=== PATIENT | female | born 1995 | race Caucasian/White ===

== ENCOUNTER 2022-03-15 15:00 | Emergency (ER) | payer OTHER, SELFPAY ==
[2022-03-15 15:33] VITALS: BP 124/88; PULSE 116; RESP 20; TEMP 36.8; O2SAT 100
[2022-03-15 15:34] VITALS: BP 124/88; PULSE 116; RESP 20; TEMP 36.8; O2SAT 100
--- NOTE | 2022-03-15 15:59 | ED.URI ---
HPI - URI/Sore Throat General Chief Complaint: Upper Respiratory Infection Stated Complaint: congestion,cough Time Seen by Provider: 03/15/22 15:59 Source: patient Mode of arrival: ambulatory Limitations: no limitations History of Present Illness HPI Narrative: 26-year-old female presents with complaint of nasal congestion, sore throat, cough, body aches, chills, fatigue for 3 days. Denies chest pain or shortness breath. No nausea vomiting diarrhea. Was exposed to flu by her cousins. All systems reviewed and negative except as noted above. Related Data Home Medications Medication Instructions Recorded Confirmed albuterol sulfate 90 mcg/actuation 2 inh inhalation PRN PRN Shortness 03/15/22 03/15/22 aerosol inhaler Of Breath Or Wheezing sertraline 50 mg tablet 50 mg PO DAILY 03/15/22 03/15/22 Allergies Allergy/AdvReac Type Severity Reaction Status Date / Time codeine Allergy Intermediate Nausea and Verified 03/15/22 15:34 Vomiting ERYTHROMYCIN ETHYLSUCCINATE Allergy Intermediate Rash Uncoded 03/15/22 15:34 SULFISOXAZOLE ACETYL Allergy Intermediate Rash Uncoded 03/15/22 15:34 Review of Systems Review of Systems: CONSTITUTIONAL: Denies fever . Reports chills, fatigue, sweats. EYES: Denies visual changes, redness, or discharge. ENT: reports rhinorrhea, congestion, sore throat. Denies otalgia. CARDIOVASCULAR: Denies chest pain, palpitations, or edema. RESPIRATORY: report cough. denies dyspnea. GASTROINTESTINAL: Denies abdominal pain, nausea, vomiting, or diarrhea. GENITOURINARY: Denies dysuria or hematuria. SKIN: Denies rash or itching. MUSCULOSKELETAL: Denies back pain, joint pain, or myalgia. NEUROLOGIC: Denies headache, numbness, or weakness. PSYCHIATRIC: Denies anxiety or depression. All other systems reviewed are negative, except as documented in HPI. PMFSH Comments At time of signature, agree with nursing past medical, surgical, social and family history. There is no relevant family history pertinent to the presenting complaint. Exam Narrative: GENERAL: This is a well-nourished, well-developed patient . Patient ill-appearing but no distress. HEAD: normocephalic, atraumatic. EYES: PERRL. Sclera clear/white. Vision is grossly intact. EARS: External ears normal, auditory canals clear and without drainage, TMs normal without perforation. Hearing grossly intact. NOSE: External nose normal with clear nasal drainage. THROAT: Mucous membranes moist, Mild erythema to posterior pharynx. NECK: Neck supple, non-tender without lymphadenopathy, masses or thyromegaly. CARDIOVASCULAR: Regular rate and rhythm without murmurs, gallops, or rubs. RESPIRATORY: Clear to auscultation. Breath sounds equal bilaterally. No wheezes, rales, or rhonchi. SKIN: warm, Dry, intact with no suspicious lesions or rash, good texture and turgor. NEURO: awake, alert, and oriented to person, place and time. There were no obvious focal neurologic abnormalities. EXTREMITIES: No joint tenderness, effusion, or edema noted. Course Course Level of Care: Express Care Visit Vital Signs Vital signs: Vital Signs Temperature 36.8 C 03/15/22 15:33 Pulse Rate 116 H 03/15/22 15:33 Respiratory Rate 20 03/15/22 15:33 Blood Pressure 124/88 03/15/22 15:33 Pulse Oximetry 100 03/15/22 15:33 Oxygen Delivery Room Air 03/15/22 15:33 Temperature 36.8 C 03/15/22 15:34 Pulse Rate 116 H 03/15/22 15:34 Respiratory Rate 20 03/15/22 15:34 Blood Pressure 124/88 03/15/22 15:34 Pulse Oximetry 100 03/15/22 15:34 Oxygen Delivery Room Air 03/15/22 15:34 Reviewed MDM - URI/Sore Throat MDM Narrative Medical decision making narrative: Patient is aware of diagnosis, understands and agrees to treatment plan. Anticipatory guidance given. Patient agrees to follow-up as directed and is aware of reasons to seek care at the emergency department. Portions of this record may have been created with voice recognition s
== END 2022-03-15 16:24 | disposition home or self-care (01) ==
PROVIDERS: Emergency Provider Nurse Practitioner Family
DX: J10.1 Influenza due to other identified influenza virus with other respiratory manifestations (principal); Z20.822 Contact with and (suspected) exposure to COVID-19
CPT/HCPCS: 87426; 87804; 99213; C9803; G0463

== ENCOUNTER 2022-03-23 17:03 | Emergency (ER) | payer OTHER, SELFPAY ==
[2022-03-23] VITALS (10 sets, daily range): BP systolic 103–137; BP diastolic 55–96; PULSE 67–96; RESP 16–18; TEMP 36.7–36.8; O2SAT 96–100
--- NOTE | 2022-03-23 20:46 | ED.HA ---
HPI - Headache General Chief Complaint: Headache Stated Complaint: migraine/nausea Time Seen by Provider: 03/23/22 20:07 History of Present Illness HPI Narrative: Patient is a 26-year-old female with a history of migraines presenting with a migraine. Patient states that she was diagnosed with influenza approximately a week ago. She has been improving but she continues to have a lot of sinus pressure and nasal congestion. She woke up this morning with a migraine and took ubrelvy without relief. She took another dose and unfortunately her migraine continued so she came in for evaluation. Patient states that this feels like her typical migraine just more severe. She reports photophobia and phonophobia. Also reports nausea but no vomiting. Denies fevers, numbness or weakness, chest pain, shortness of breath, abdominal pain, diarrhea, leg swelling. Related Data Home Medications Medication Instructions Recorded Confirmed albuterol sulfate 90 mcg/actuation 2 inh inhalation PRN PRN Shortness 03/15/22 03/15/22 aerosol inhaler Of Breath Or Wheezing sertraline 50 mg tablet 50 mg PO DAILY 03/15/22 03/15/22 Allergies Allergy/AdvReac Type Severity Reaction Status Date / Time codeine Allergy Intermediate Nausea and Verified 03/23/22 20:29 Vomiting ERYTHROMYCIN ETHYLSUCCINATE Allergy Intermediate Rash Uncoded 03/23/22 20:29 SULFISOXAZOLE ACETYL Allergy Intermediate Rash Uncoded 03/23/22 20:29 Review of Systems Review of Systems: All systems reviewed & are unremarkable except as noted in HPI and below Exam Narrative: GENERAL: Well-appearing, well-nourished, and in no acute distress. HEAD: Normocephalic, atraumatic. EYES: PERRLA and EOMI. ENT: Nares clear, no rhinorrhea or epistaxis. Mucous membranes moist. NECK: Supple. CHEST: Clear to auscultation. No respiratory distress. HEART: Regular rate and rhythm. No murmur heard. Normal peripheral pulses. ABDOMEN: Soft, nontender, nondistended, normal active bowel sounds. EXTREMITIES: Normal range of motion. No edema. SKIN: Warm, dry, no rash. NEURO: No focal deficits. Alert and oriented x3. PSYCH: Normal mood and affect. Course Vital Signs Vital signs: Vital Signs Temperature 98.1 F 03/23/22 17:40 Pulse Rate 96 03/23/22 17:40 Respiratory Rate 16 03/23/22 17:40 Blood Pressure 137/96 H 03/23/22 17:40 Pulse Oximetry 100 03/23/22 17:40 Oxygen Delivery Room Air 03/23/22 17:40 Temperature 98.2 F 03/23/22 22:51 Pulse Rate 75 03/23/22 22:51 Respiratory Rate 18 03/23/22 22:51 Blood Pressure 126/79 03/23/22 22:51 Pulse Oximetry 98 03/23/22 22:51 Oxygen Delivery Room Air 03/23/22 17:40 MDM - Headache MDM Narrative Medical decision making narrative: Patient is a 26-year-old female presenting with a migraine. Vitals within normal limits. Patient is uncomfortable but nontoxic and in no acute distress. Exam is unremarkable. Neurologically intact. Patient was given a migraine cocktail with improvement in her symptoms. Given a dose of Decadron to prevent migraine recurrence. Advised that she follow-up with her migraine specialist as well as her PCP. Appropriate return precautions given. Patient voiced understanding and is agreeable with plan. Discharged in stable condition. Critical Care Time Critical Care Time Critical Care Time: No Discharge Plan Discharge Clinical Impression: Migraine Patient Disposition: Home, Self-Care Condition: Stable Instructions: Antibiotic Form, Migraine Headache (ED) Additional Instructions: Please follow-up with your primary care provider as well as your migraine doctor. If your symptoms suddenly worsen, you develop numbness or weakness, or other concerning symptoms arise, please return to the ER. Prescriptions: No Action albuterol sulfate 90 mcg/actuation HFA aerosol inhaler 2 inh INHALATION PRN PRN (Reason: Shortness Of Breath Or Wheezing) sertraline 50 mg tablet 5
[2022-03-23] MEDS: SODIUM CHLORIDE 0.9% IV 1,000 ML 999 ML IV CONT (21:03)
[2022-03-23] MEDS: KETOROLAC 15 MG/ML VIAL (*BKC) IV PUSH (21:04)
[2022-03-23] MEDS: diphenhydrAMINE HCl INJ 50 MG/ML VIAL IV PUSH (21:05)
[2022-03-23] MEDS: PROCHLORPERAZINE EDISYLATE 10 MG/2 ML VIAL IV PUSH (21:10)
== END 2022-03-23 22:52 | disposition home or self-care (01) ==
PROVIDERS: Emergency Provider Emergency Medicine; PCP Nurse Practitioner Family
DX: G43.909 Migraine, unspecified, not intractable, without status migrainosus (principal)
CPT/HCPCS: 96361; 96374; 96375; 99284; J0780; J1100; J1200; J1885; J7030

== ENCOUNTER 2022-08-19 21:54 | Inpatient (IN) | payer OTHER, SELFPAY ==
--- NOTE | ~2022-08-19 | US_ITS ---
EXAMINATION: US renal BI DATE: 08/20/2022 15:35 INDICATION: Henoch Schonlein purpura TECHNIQUE: Multiple ultrasound grayscale images of the kidneys were obtained. COMPARISON: None. FINDINGS: The right kidney measures 9.8 x 5.1 x 4.2 cm. The left kidney measures 10.1 x 5.1 x 5.6 cm. The kidne ys demonstrate normal echogenicity. There is no hydronephrosis in either kidney. No stones identifie d. The bladder is normal. IMPRESSION: 1. Normal kidneys without hydronephrosis. Reviewed, dictated and finalized at location A.
[2022-08-19 21:58] VITALS: BP 121/85; PULSE 121; RESP 20; TEMP 37.4; O2SAT 100
[2022-08-19 22:34] LABS: Basophils Absolute Auto 0.1 K/mm3 (0.0-0.1); Basophils Percent Auto 0.6 % (0.2-1.2); Eosinophils Absolute Auto 0.1 K/mm3 (0-0.3); Eosinophils Percent Auto 0.7 % (0-4.4); Hemoglobin 15.2 g/dL (12.0-15.0); Immature Granulocyte Absolute 0.04 K/mm3 (0.00-0.031); Immature Granulocyte Percent A 0.3 % (0-0.5); Lymphocytes Absolute Auto 1.54 K/mm3 (0.9-3.2); Lymphocytes Percent Auto 12.7 % (18.3-44.2); Mean Corpuscular HGB Conc 34.5 g/dl (32-36); Mean Corpuscular Hemoglobin 28.8 pg (26-34); Mean Corpuscular Volume 83.3 fl (80-100); Mean Platelet Volume 9.2 fl (7.4-10.4); Monocytes Absolute Auto 0.7 K/mm3 (0.1-0.6); Monocytes Percent Auto 6.1 % (2.6-8.5); Neutrophils Absolute Auto 9.7 K/mm3 (1.3-6.7); Neutrophils Percent Auto 79.6 % (45.5-73.1); Platelet Count Result 385 k/mm3 (150-375); Red Blood Count 5.28 M/mm3 (4.2-5.4); Red Cell Distribution Width 12.7 % (11.5-14.5); White Blood Count 12.1 K/mm3 (4.5-10.0)
[2022-08-19 22:49] LABS: Alanine Aminotransferase 27 U/L (6-35); Albumin Level 4.8 g/dL (3.5-5.1); Alkaline Phosphatase 108 U/L (38-126); Anion Gap 12 mmol/L (8-16); Aspartate Amino Transferase 30 U/L (14-36); Bilirubin,Total 0.8 mg/dL (0.2-1.3); Blood Urea Nitrogen 23 mg/dL (7-17); CRP 3.1 mg/dL (<1.0); Calcium 9.6 mg/dL (8.4-10.2); Carbon Dioxide 26 mmol/L (22-30); Chloride 97 mmol/L (98-107); Creatine Kinase 185 U/L (30-135); Estimated CRCL calculation 96 ml/min; Estimated Glomerular Filt Rate > 60; Glucose 104 mg/dL (65-110); Potassium 3.7 mmol/L (3.4-5.0); Sodium 135 mmol/L (137-145)
[2022-08-19 23:21] LABS: Appearance Urine Clear (Clear); Bilirubin Urine Negative (Negative); Blood Urine Negative (Negative); Color Urine Yellow (Yellow); Glucose Urine UA Negative (Negative); Ketones Urine 1+ mg/dL (Negative); Leukocyte Esterase Ur Negative LEU/UL (Negative); Nitrate Urine Negative (Negative); Protein Urine Negative (Negative); Specific Grav Ur 1.024 (1.001-1.035); Urobilinogen Urine 0.2 mg/dL (<2.0); pH Urine 5.5 (5.0-9.0)
[2022-08-19 23:40] LABS: Add Urine Microscopic? NO
[2022-08-19 23:48] VITALS: BP 139/89; PULSE 106; RESP 16; O2SAT 100
[2022-08-20] VITALS (15 sets, daily range): BP systolic 110–139; BP diastolic 66–93; PULSE 93–119; RESP 14–21; TEMP 36.1–36.8; O2SAT 95–100; BMI 39.2
[2022-08-20] MEDS: SODIUM CHLORIDE 0.9% IV 1,000 ML 999 ML IV CONT ×2 (00:21→07:56)
--- NOTE | 2022-08-20 01:42 | ED.GENADULT ---
HPI - General Adult General Chief complaint: Skin/Abscess/Foreign Body <Demetrio Lin PA-C - Last Filed: 08/20/22 04:42> Stated complaint: rash on legs, muscle weakness <Demetrio Lin PA-C - Last Filed: 08/20/22 04:42> Time Seen by Provider: 08/19/22 23:52 <Demetrio Lin PA-C - Last Filed: 08/20/22 04:42> Source: patient <ADRIANA Stark Last Filed: 08/20/22 04:42> Mode of arrival: ambulatory <ADRIANA Stark Last Filed: 08/20/22 04:42> Limitations: no limitations <Demetrio Lin PA-C - Last Filed: 08/20/22 04:42> History of Present Illness HPI narrative: This is a 26-year-old female with no pertinent PMH presents to the ED with chief complaint of bilateral lower extremity rash and pain x2 days. Patient states that it started in the lower legs and has been spreading superiorly since yesterday. Patient was seen by urgent care today and given antibiotics for potential bacterial infection. Patient states she is here tonight because the rash is significantly worse than earlier and is having weakness in the legs as well. Denies any new skin products. Denies any known bug bites. States she does live near the [facility]. Denies any known injuries. No new drugs other than her antibiotic prescription given tonight. Denies fevers, chills, chest pain, shortness of breath, cough, abdominal pain, nausea, vomiting, diarrhea. Denies urinary symptoms. Denies vaginal symptoms. States currently on period. Denies any concern for STD. <Demetrio Lin PA-C - Last Filed: 08/20/22 04:42> Related Data Home medications: Home Medications Medication Instructions Recorded Confirmed albuterol sulfate 90 mcg/actuation 2 inh inhalation PRN PRN Shortness 03/15/22 08/20/22 aerosol inhaler Of Breath Or Wheezing <ADRIANA Stark Last Filed: 08/20/22 04:42> Allergies/adverse reactions: Allergies Allergy/AdvReac Type Severity Reaction Status Date / Time erythromycin base Allergy Intermediate Rash Verified 08/20/22 06:47 sulfisoxazole Allergy Intermediate Rash Verified 08/20/22 06:47 codeine AdvReac Intermediate Nausea and Verified 08/20/22 06:47 Vomiting <Demetrio Lin PA-C - Last Filed: 08/20/22 04:42> Review of Systems Review of Systems: CONSTITUTIONAL: Denies fever, chills, or sweats. EYES: Denies visual changes, redness, or discharge. ENT: Denies rhinorrhea, congestion, sore throat, or otalgia. CARDIOVASCULAR: Denies chest pain, palpitations, or edema. RESPIRATORY: Denies cough or dyspnea. GASTROINTESTINAL: Denies abdominal pain, nausea, vomiting, or diarrhea. GENITOURINARY: Denies dysuria or hematuria. SKIN: See HPI MUSCULOSKELETAL: See HPI NEUROLOGIC: Denies headache, numbness, dizziness, or weakness. PSYCHIATRIC: Denies anxiety or depression. <Demetrio Lin PA-C - Last Filed: 08/20/22 04:42> [facility] Social History Social History: Social History Smoking status: Never smoker Alcohol intake: current Drinks per week: 1 Substance use: current Substance use type: does not use Lack of Transportation: No Lack of Food: Never True Current Housing: I Do Not Have Housing Concerned About Future Housing: No Difficulty Paying Gas/Electric Bills: No Difficulty Paying for Meds: No Currently Unemployed: No Education: High School Diploma/GED Difficulty w/ Childcare or Family Care: No Spiritual care concerns: No <Demetrio Lin PA-C - Last Filed: 08/20/22 04:42> Exam Narrative: GENERAL: Well-appearing, well-nourished, and in no acute distress. HEAD: Normocephalic, atraumatic. EYES: PERRLA and EOMI. ENT: Nares clear, no rhinorrhea or epistaxis. Mucous membranes moist. Oropharynx without tonsillar hypertrophy exudate or other lesions. NECK: Supple. No adenopathy or masses. CHEST: No respiratory distress. Clear to auscultation. No wheezes rales or rhonchi HEART: Regular rate a
[2022-08-20] MEDS: KETOROLAC 30 MG/ML VIAL (*BKC) IV PUSH (02:38)
[2022-08-20] MEDS: DOXYCYCLINE 100 MG/NS 100 ML 100 MG/100 ML BAG IVPB ×2 (04:35→17:19)
[2022-08-20] MEDS: ceFAZolin 1 GM/NS 50 ML 1 GM/50 ML BAG IVPB (06:59)
--- NOTE | 2022-08-20 07:46 | ADMGEN ---
This patient, Melinda Zamora, was admitted to 2 Medical Room 242-01. Patient/family oriented to hospital policies and general routines including ID bracelet, bed and alarms, visiting hours, pain management, procedures, bathroom and other care routines, personal items, smoking policy, room service/diet, and visiting hours. Information on how to activate the Rapid Response Team has been discussed. Patient/Family are encouraged to report perceived risks to care and to ask questions if they do not understand what they are told or what they should do.
[2022-08-20] MEDS: SODIUM CHLORIDE 0.9% IV 1,000 ML 100 ML IV CONT ×2 (08:11→17:47)
--- NOTE | 2022-08-20 12:34 | PM.IMHP ---
H&P: HPI History of Present Illness Date/Time: 08/20/22 12:34 Chief Complaint: B/L lower extremities rash Narrative: ED-HPI narrative: ? ? ? This is a 26-year-old female with no pertinent PMH presents to the ED with chief complaint of bilateral lower extremity rash and pain x2 days.? Patient states that it started in the lower legs and has been spreading superiorly since yesterday.? Patient was seen by urgent care today and given antibiotics for potential bacterial infection.? Patient states she is here tonight because the rash is significantly worse than earlier and is having weakness in the legs as well.? Denies any new skin products.? Denies any known bug bites.? States she does live near the [facility].? Denies any known injuries.? No new drugs other than her antibiotic prescription given tonight.? Denies fevers, chills, chest pain, shortness of breath, cough, abdominal pain, nausea, vomiting, diarrhea.? Denies urinary symptoms. Denies vaginal symptoms. States currently on period. Denies any concern for STD. Patient states the rash is getting worse and complains of pain in her joints but denies any abdominal pain nausea or vomiting, I suspect patient has Henoch-Schonlein purpura, will give patient methylprednisone, her urine does not show any protienuria, will do baseline kidney US, will monitor and farther recommendation to follow. Patient admitted as observation status Review of Systems Review of Systems: CONSTITUTIONAL: Denies fever, chills, or sweats. EYES: Denies visual changes, redness, or discharge. ENT: Denies rhinorrhea, congestion, sore throat, or otalgia. CARDIOVASCULAR: Denies chest pain, palpitations, or edema. RESPIRATORY: Denies cough or dyspnea. GASTROINTESTINAL: Denies abdominal pain, nausea, vomiting, or diarrhea. GENITOURINARY: Denies dysuria or hematuria. SKIN: See HPI MUSCULOSKELETAL: See HPI NEUROLOGIC: Denies headache, numbness, dizziness, or weakness. PSYCHIATRIC: Denies anxiety or depression. [facility] Social History Social History Smoking status: Never smoker Alcohol intake: current Drinks per week: 1 Substance use: current Substance use type: does not use Lack of Transportation: No Lack of Food: Never True Current Housing: I Do Not Have Housing Concerned About Future Housing: No Difficulty Paying Gas/Electric Bills: No Difficulty Paying for Meds: No Currently Unemployed: No Education: High School Diploma/GED Difficulty w/ Childcare or Family Care: No Spiritual care concerns: No Meds Home Medications and Allergies Home Medications Medication Instructions Recorded Confirmed Type albuterol sulfate 90 mcg/actuation 2 inh inhalation PRN PRN Shortness 03/15/22 08/20/22 History aerosol inhaler Of Breath Or Wheezing Allergies Allergy/AdvReac Type Severity Reaction Status Date / Time erythromycin base Allergy Intermediate Rash Verified 08/20/22 06:47 sulfisoxazole Allergy Intermediate Rash Verified 08/20/22 06:47 codeine AdvReac Intermediate Nausea and Verified 08/20/22 06:47 Vomiting Vital Signs Vital Signs - 24 hr 08/19/22 21:58 08/19/22 23:48 08/20/22 00:01 Temperature 99.4 F Pulse Rate 121 H 106 H 93 Respiratory Rate 20 16 17 Blood Pressure 121/85 139/89 133/90 Pulse Oximetry 100 100 99 Oxygen Delivery Room Air 08/20/22 00:16 08/20/22 00:31 08/20/22 00:46 Temperature Pulse Rate 101 H 102 H 98 Respiratory Rate 20 15 14 Blood Pressure 128/87 132/91 H 134/87 Pulse Oximetry 99 98 99 Oxygen Delivery 08/20/22 03:31 08/20/22 04:00 08/20/22 04:16 Temperature Pulse Rate 105 H 105 H 119 H Respiratory Rate 19 16 18 Blood Pressure 139/93 H Pulse Oximetry 99 98 99 Oxygen Delivery 08/20/22 04:35 08/20/22 04:45 08/20/22 05:00 Temperature Pulse Rate 100 103 H 101 H Respiratory Rate 17 15 14 Blood Pressure Pulse Oximetry 98 98 98 Oxygen Delivery
[2022-08-20] MEDS: methylPREDNISolone SOD SUCC 125 MG VIAL IV PUSH (13:47)
[2022-08-21] MEDS: SODIUM CHLORIDE 0.9% IV 1,000 ML 100 ML IV CONT (03:47)
[2022-08-21 03:59] VITALS: BP 128/66; PULSE 96; RESP 22; TEMP 36.1; O2SAT 96
[2022-08-21 07:30] LABS: Estimated CRCL calculation 121 ml/min; Estimated Glomerular Filt Rate > 60
[2022-08-21] MEDS: ENOXAPARIN 40 MG/0.4 ML SYRINGE SUB-Q (08:28)
[2022-08-21] MEDS: ACETAMINOPHEN 325 MG TABLET 650 MG PO (09:44)
[2022-08-21] MEDS: methylPREDNISolone SOD SUCC 125 MG VIAL 60 MG IV PUSH (12:34)
--- NOTE | 2022-08-21 13:26 | PM.IMPN ---
Progress Note: A&P Assessment and Plan (1) Rash and nonspecific skin eruption: Code(s): R21 - Rash and other nonspecific skin eruption Status: Acute Assessment and Plan: ED-HPI narrative: ? ? ? This is a 26-year-old female with no pertinent PMH presents to the ED with chief complaint of bilateral lower extremity rash and pain x2 days.? Patient states that it started in the lower legs and has been spreading superiorly since yesterday.? Patient was seen by urgent care today and given antibiotics for potential bacterial infection.? Patient states she is here tonight because the rash is significantly worse than earlier and is having weakness in the legs as well.? Denies any new skin products.? Denies any known bug bites.? States she does live near the [facility].? Denies any known injuries.? No new drugs other than her antibiotic prescription given tonight.? Denies fevers, chills, chest pain, shortness of breath, cough, abdominal pain, nausea, vomiting, diarrhea.? Denies urinary symptoms. Denies vaginal symptoms. States currently on period. Denies any concern for STD. 08/21/2022 interval history: on 08/20 Patient statesd the rash was getting worse and complains of pain in her joints but denied any abdominal pain nausea or vomiting, I suspect patient has Henoch-Schonlein purpura, and gave patient methylprednisone 125mg IV x1, , her urine does not show any protienuria, and kidney US is essentially normal, today patient is joint pain is better and the ratio is improved, will give methylprednisone 60 mg q.day and monitor. (2) Bilateral leg pain: Code(s): M79.604 - Pain in right leg; M79.605 - Pain in left leg Status: Acute Assessment and Plan: Most likely secondary to Henoch-Schonlein purpura, will give the patient steroid and monitor Subjective Date/time seen: 08/21/22 13:26 Interval history: ED-HPI narrative: ? ? ? This is a 26-year-old female with no pertinent PMH presents to the ED with chief complaint of bilateral lower extremity rash and pain x2 days.? Patient states that it started in the lower legs and has been spreading superiorly since yesterday.? Patient was seen by urgent care today and given antibiotics for potential bacterial infection.? Patient states she is here tonight because the rash is significantly worse than earlier and is having weakness in the legs as well.? Denies any new skin products.? Denies any known bug bites.? States she does live near the [place].? Denies any known injuries.? No new drugs other than her antibiotic prescription given tonight.? Denies fevers, chills, chest pain, shortness of breath, cough, abdominal pain, nausea, vomiting, diarrhea.? Denies urinary symptoms. Denies vaginal symptoms. States currently on period. Denies any concern for STD. 08/21/2022 interval history: on 08/20 Patient statesd the rash was getting worse and complains of pain in her joints but denied any abdominal pain nausea or vomiting, I suspect patient has Henoch-Schonlein purpura, and gave patient methylprednisone 125mg IV x1, , her urine does not show any protienuria, and kidney US is essentially normal, today patient is joint pain is better and the ratio is improved, will give methylprednisone 60 mg q.day and monitor. Review of Systems Review of Systems: CONSTITUTIONAL: Denies fever, chills, or sweats. EYES: Denies visual changes, redness, or discharge. ENT: Denies rhinorrhea, congestion, sore throat, or otalgia. CARDIOVASCULAR: Denies chest pain, palpitations, or edema. RESPIRATORY: Denies cough or dyspnea. GASTROINTESTINAL: Denies abdominal pain, nausea, vomiting, or diarrhea. GENITOURINARY: Denies dysuria or hematuria. SKIN: See HPI MUSCULOSKELETAL: See HPI NEUROLOGIC: Denies headache, numbness, dizziness, or weakness. PSYCHIATRIC: Denies anxiety or depression. Exam Narrative: Patient is comfortable, NAD HEENT: eyes are clear and none icteric LUNGS: Normal respiratory effort ABD: Not distended
[2022-08-21 14:25] VITALS: BP 126/71; PULSE 80; RESP 16; TEMP 36.7; O2SAT 100
[2022-08-21 19:47] VITALS: BP 124/68; PULSE 84; RESP 19; TEMP 36.4; O2SAT 97
[2022-08-22 04:12] VITALS: BP 125/72; PULSE 67; RESP 20; TEMP 36.1; O2SAT 98
[2022-08-22 05:34] LABS: Alanine Aminotransferase 22 U/L (6-35); Albumin Level 4.2 g/dL (3.5-5.1); Alkaline Phosphatase 81 U/L (38-126); Anion Gap 5 mmol/L (8-16); Aspartate Amino Transferase 24 U/L (14-36); Bilirubin,Total 0.5 mg/dL (0.2-1.3); Blood Urea Nitrogen 12 mg/dL (7-17); Calcium 8.8 mg/dL (8.4-10.2); Carbon Dioxide 27 mmol/L (22-30); Chloride 107 mmol/L (98-107); Estimated CRCL calculation 107 ml/min; Estimated Glomerular Filt Rate > 60; Glucose 101 mg/dL (65-110); Magnesium 2.3 mg/dL (1.6-2.3); Potassium 3.8 mmol/L (3.4-5.0); Sodium 139 mmol/L (137-145)
[2022-08-22 08:00] VITALS: PULSE 67; RESP 20; O2SAT 98
[2022-08-22] MEDS: methylPREDNISolone SOD SUCC 125 MG VIAL 60 MG IV PUSH (08:29)
[2022-08-22 10:45] LABS: Hematocrit 42.4 % (37.0-47.0); Hemoglobin 13.6 g/dL (12.0-15.0); Mean Corpuscular HGB Conc 32.1 g/dl (32-36); Mean Corpuscular Hemoglobin 28.7 pg (26-34); Mean Corpuscular Volume 89.5 fl (80-100); Mean Platelet Volume 9.8 fl (7.4-10.4); Platelet Count Result 329 k/mm3 (150-375); Red Blood Count 4.74 M/mm3 (4.2-5.4); Red Cell Distribution Width 13.2 % (11.5-14.5); White Blood Count 9.8 K/mm3 (4.5-10.0)
--- NOTE | 2022-08-22 13:51 | PM.IMPN ---
Progress Note: A&P Assessment and Plan (1) Rash and nonspecific skin eruption: Code(s): R21 - Rash and other nonspecific skin eruption Status: Acute Assessment and Plan: ED-HPI narrative: ? ? ? This is a 26-year-old female with no pertinent PMH presents to the ED with chief complaint of bilateral lower extremity rash and pain x2 days.? Patient states that it started in the lower legs and has been spreading superiorly since yesterday.? Patient was seen by urgent care today and given antibiotics for potential bacterial infection.? Patient states she is here tonight because the rash is significantly worse than earlier and is having weakness in the legs as well.? Denies any new skin products.? Denies any known bug bites.? States she does live near the [facility].? Denies any known injuries.? No new drugs other than her antibiotic prescription given tonight.? Denies fevers, chills, chest pain, shortness of breath, cough, abdominal pain, nausea, vomiting, diarrhea.? Denies urinary symptoms. Denies vaginal symptoms. States currently on period. Denies any concern for STD. 08/26/2022 interval history: on 08/20 Patient statesd the rash was getting worse and complains of pain in her joints but denied any abdominal pain nausea or vomiting, I suspect patient has Henoch-Schonlein purpura, and gave patient methylprednisone 125mg IV x1, , her urine does not show any protienuria, and kidney US is essentially normal, we have continued methylprednisone 60mg qdaily, patient symptoms are improving, stats rash and joints pain is better, one bottle on blood culture is growing gram positive cocci cluster, suspect most likely contamination however will follow-up identification and sensitivity and also discussed with ID pharmacist and further recommendation to follow, patient's mother is present in the room (2) Bilateral leg pain: Code(s): M79.604 - Pain in right leg; M79.605 - Pain in left leg Status: Acute Assessment and Plan: Most likely secondary to Henoch-Schonlein purpura, will give the patient steroid and monitor Subjective Date/time seen: 08/22/22 13:51 Interval history: ED-HPI narrative: ? ? ? This is a 26-year-old female with no pertinent PMH presents to the ED with chief complaint of bilateral lower extremity rash and pain x2 days.? Patient states that it started in the lower legs and has been spreading superiorly since yesterday.? Patient was seen by urgent care today and given antibiotics for potential bacterial infection.? Patient states she is here tonight because the rash is significantly worse than earlier and is having weakness in the legs as well.? Denies any new skin products.? Denies any known bug bites.? States she does live near the [facility].? Denies any known injuries.? No new drugs other than her antibiotic prescription given tonight.? Denies fevers, chills, chest pain, shortness of breath, cough, abdominal pain, nausea, vomiting, diarrhea.? Denies urinary symptoms. Denies vaginal symptoms. States currently on period. Denies any concern for STD. 08/26/2022 interval history: on 08/20 Patient statesd the rash was getting worse and complains of pain in her joints but denied any abdominal pain nausea or vomiting, I suspect patient has Henoch-Schonlein purpura, and gave patient methylprednisone 125mg IV x1, , her urine does not show any protienuria, and kidney US is essentially normal, we have continued methylprednisone 60mg qdaily, patient symptoms are improving, stats rash and joints pain is better, one bottle on blood culture is growing gram positive cocci cluster, suspect most likely contamination however will follow-up identification and sensitivity and also discussed with ID pharmacist and further recommendation to follow, patient's mother is present in the room Exam Narrative: Patient is comfortable, NAD HEENT: eyes are clear and none icteric LUNGS: Normal respiratory effort ABD: Not distended Lower extremities: no edema
[2022-08-22 14:00] VITALS: BP 124/76; PULSE 80; RESP 18; TEMP 36.6; O2SAT 98
[2022-08-22 20:00] VITALS: PULSE 100; RESP 20; O2SAT 84
[2022-08-22 20:39] VITALS: BP 127/78; PULSE 100; RESP 20; TEMP 36.1; O2SAT 84
[2022-08-23 03:54] VITALS: BP 123/73; PULSE 87; RESP 20; TEMP 36.4; O2SAT 100
[2022-08-23 05:37] LABS: Hematocrit 41.2 % (37.0-47.0); Hemoglobin 13.6 g/dL (12.0-15.0); Mean Corpuscular Hemoglobin 28.5 pg (26-34); Mean Corpuscular Volume 86.2 fl (80-100); Mean Platelet Volume 9.5 fl (7.4-10.4); Platelet Count Result 327 k/mm3 (150-375); Red Blood Count 4.78 M/mm3 (4.2-5.4)
[2022-08-23 05:47] LABS: Alanine Aminotransferase 19 U/L (6-35); Albumin Level 3.9 g/dL (3.5-5.1); Alkaline Phosphatase 81 U/L (38-126); Anion Gap 7 mmol/L (8-16); Aspartate Amino Transferase 19 U/L (14-36); Bilirubin,Total 0.4 mg/dL (0.2-1.3); Blood Urea Nitrogen 18 mg/dL (7-17); Calcium 8.5 mg/dL (8.4-10.2); Carbon Dioxide 27 mmol/L (22-30); Chloride 107 mmol/L (98-107); Estimated CRCL calculation 96 ml/min; Estimated Glomerular Filt Rate > 60; Glucose 91 mg/dL (65-110); Magnesium 2.2 mg/dL (1.6-2.3); Potassium 3.7 mmol/L (3.4-5.0); Sodium 141 mmol/L (137-145)
[2022-08-23] MEDS: ENOXAPARIN 40 MG/0.4 ML SYRINGE SUB-Q (09:31)
--- NOTE | 2022-08-23 09:54 | PM.DS ---
DS: Admitting Diagnosis Discharge Date 08/23/2022 Admitting Diagnosis Rash DS: Discharge Diagnosis Discharge Diagnosis (1) Rash and nonspecific skin eruption: Code(s): R21 - Rash and other nonspecific skin eruption Status: Acute Assessment and Plan: ED-HPI narrative: ? ? ? This is a 26-year-old female with no pertinent PMH presents to the ED with chief complaint of bilateral lower extremity rash and pain x2 days.? Patient states that it started in the lower legs and has been spreading superiorly since yesterday.? Patient was seen by urgent care today and given antibiotics for potential bacterial infection.? Patient states she is here tonight because the rash is significantly worse than earlier and is having weakness in the legs as well.? Denies any new skin products.? Denies any known bug bites.? States she does live near the [facility].? Denies any known injuries.? No new drugs other than her antibiotic prescription given tonight.? Denies fevers, chills, chest pain, shortness of breath, cough, abdominal pain, nausea, vomiting, diarrhea.? Denies urinary symptoms. Denies vaginal symptoms. States currently on period. Denies any concern for STD. 08/26/2022 interval history: on 08/20 Patient statesd the rash was getting worse and complains of pain in her joints but denied any abdominal pain nausea or vomiting, I suspect patient has Henoch-Schonlein purpura, and gave patient methylprednisone 125mg IV x1, , her urine does not show any protienuria, and kidney US is essentially normal, we have continued methylprednisone 60mg qdaily, patient symptoms are improving, stats rash and joints pain is better, one bottle on blood culture is growing gram positive cocci cluster, suspect most likely contamination however will follow-up identification and sensitivity and also discussed with ID pharmacist and further recommendation to follow, patient's mother is present in the room (2) Bilateral leg pain: Code(s): M79.604 - Pain in right leg; M79.605 - Pain in left leg Status: Acute Assessment and Plan: Most likely secondary to Henoch-Schonlein purpura, will give the patient steroid and monitor DS: Summary Hospital Course Reason for hospitalization: ED-HPI narrative: ? ? ? This is a 26-year-old female with no pertinent PMH presents to the ED with chief complaint of bilateral lower extremity rash and pain x2 days.? Patient states that it started in the lower legs and has been spreading superiorly since yesterday.? Patient was seen by urgent care today and given antibiotics for potential bacterial infection.? Patient states she is here tonight because the rash is significantly worse than earlier and is having weakness in the legs as well.? Denies any new skin products.? Denies any known bug bites.? States she does live near the [facility].? Denies any known injuries.? No new drugs other than her antibiotic prescription given tonight.? Denies fevers, chills, chest pain, shortness of breath, cough, abdominal pain, nausea, vomiting, diarrhea.? Denies urinary symptoms. Denies vaginal symptoms. States currently on period. Denies any concern for STD. Patient states the rash is getting worse and complains of pain in her joints but denies any abdominal pain nausea or vomiting, I suspect patient has Henoch-Schonlein purpura, will give patient methylprednisone, her urine does not show any protienuria, will do baseline kidney US, will monitor and farther recommendation to follow. Hospital Course: on 08/20 Patient statesd the rash was getting worse and complains of pain in her joints but denied any abdominal pain nausea or vomiting, I suspect patient has Henoch-Schonlein purpura, and gave patient methylprednisone 125mg IV x1, , her urine does not show any protienuria, and kidney US is essentially normal, we have continued methylprednisone 60mg qdaily, patient symptoms are improving, stats rash and joints pain is better, one bottle on blood culture is growing gram posit
== END 2022-08-23 11:03 | disposition home or self-care (01) | DRG 813 ==
LOC: ANHED 08-20 04:41 → ANH2MED 08-20 05:48
PROVIDERS: Admitting Provider Internal Medicine; Emergency Provider Physician Assistant; PCP Nurse Practitioner Family; Visit Provider Family Medicine
DX: D69.0 Allergic purpura (principal); M79.604 Pain in right leg; M79.605 Pain in left leg; N76.0 Acute vaginitis; B95.4 Other streptococcus as the cause of diseases classified elsewhere
CPT/HCPCS: 36415; 76775; 80053; 81003; 81025; 82550; 82565; 83605; 83735; 85025; 85027; 86140; 87040; 87070; 87081; 87147; 87181; 87186; 96361; 96365; 96366; 96367; 96372; 96374; 96375; 99285; A9270; G0378; J0131; J0690; J1650; J1885; J2930; J3370; J7030

== ENCOUNTER 2022-08-26 14:57 | Emergency (ER) | payer OTHER, SELFPAY ==
--- NOTE | 2022-08-26 15:00 | ED.SKABFB ---
HPI - Skin/Abscess/Foreign Bdy General Chief complaint: Skin/Abscess/Foreign Body Stated complaint: body rash Time Seen by Provider: 08/26/22 15:00 Source: patient Mode of arrival: ambulatory Limitations: no limitations History of Present Illness HPI narrative: Melinda is a 26-year-old female patient presenting to clinic today with complaints of a rash that started on 08/20/22. Was initially given antibiotics and the rash got worse so she went to the ED and was admitted to the hospitalist care. Patient had normal kidney function-on ultrasound and no proteinuria at that time. States to that time she had bilateral leg pain and the rash.She was given cefdinir and prednisone on discharge from the hospital. Was given multiple antibiotics, steroids, Toradol, and Lovenox during the hospital visit. Her platelet count and kidney function labs were normal. 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 She saw Dermatology yesterday and they took a biopsy of the rash to her right lower leg. Today she states that her muscles in her legs are somewhat sore however the rash was improving while taking 60 mg of prednisone and she tapered down to 50 mg today and noticed new rash appearing on her feet and around her waist. States she contacted her PCP who referred her to contact her machine attendant. Attempted to contact Dermatology and their office closed at 2:00 pm today. She denies any chest pain, shortness of breath, difficulty breathing, flank pain, abdominal pain, difficulty with urination, hematuria, or blood in her stools. Related Data Home Medications Medication Instructions Recorded Confirmed albuterol sulfate 90 mcg/actuation 2 inh inhalation PRN PRN Shortness 03/15/22 08/26/22 aerosol inhaler Of Breath Or Wheezing Allergies Allergy/AdvReac Type Severity Reaction Status Date / Time erythromycin base Allergy Intermediate Rash Verified 08/26/22 15:05 sulfisoxazole Allergy Intermediate Rash Verified 08/26/22 15:05 codeine AdvReac Intermediate Nausea and Verified 08/26/22 15:05 Vomiting Review of Systems Review of Systems: Pertinent positives per HPI. Patient denies any fever, chills, headache, visual changes, dizziness, cough, runny nose, sore throat, shortness of breath, chest pain, palpitations, nausea, vomiting, diarrhea, constipation, abdominal pain, or any urinary issues. [facility] Past Medical History Medical History Anxiety Asthma Henoch Schonlein syndrome Surgical History Surgical History History of appendectomy Social History Social History Smoking status: Never smoker Second hand tobacco smoke exposure: No Alcohol intake: current Drinks per week: 1 Substance use: never Substance use type: does not use Lack of Transportation: No Lack of Food: Never True Current Housing: I Do Not Have Housing Concerned About Future Housing: No Difficulty Paying Gas/Electric Bills: No Difficulty Paying for Meds: No Currently Unemployed: No Education: High School Diploma/GED Difficulty w/ Childcare or Family Care: No Living arrangements: with family Occupation/Education: occupation 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 Gender identity (if verbalized by the patient): Female Sexual Orientation (if Verbalized by the Patient): Straight or Heterosexual Spiritual care concerns: No Agree to blood products: Yes Comments At the time of my signature, I reviewed and agree with the nursing past medical, surgical, social, and family history. There is no relevant family history pertinent to the patient complaint. Exam Narrative: General: Well-developed, well nourished, in no apparent distress Head: Normocephalic, atraumatic Eyes: Pupils equally round and react
[2022-08-26 15:06] VITALS: BP 135/97; PULSE 100; RESP 16; TEMP 36.4; O2SAT 100
== END 2022-08-26 15:57 | disposition home or self-care (01) ==
PROVIDERS: Emergency Provider Nurse Practitioner Family; PCP Nurse Practitioner
DX: R23.3 Spontaneous ecchymoses (principal)
CPT/HCPCS: 99211; G0463

== ENCOUNTER 2022-09-05 08:02 | Outpatient (CLI) | payer OTHER, SELFPAY ==
[2022-09-05 10:42] LABS: Prothrombin Time 13.5 Seconds (11.1-14.7)
[2022-09-05 10:43] LABS: Partial Thromboplastin Time 25.9 SECONDS (22.3-36.8)
[2022-09-05 19:44] LABS: Basophils Absolute Auto 0.1 K/mm3 (0.0-0.1); Basophils Percent Auto 0.3 % (0.2-1.2); Eosinophils Absolute Auto 0.1 K/mm3 (0-0.3); Eosinophils Percent Auto 0.7 % (0-4.4); Hemoglobin 14.3 g/dL (12.0-15.0); Immature Granulocyte Absolute 0.18 K/mm3 (0.00-0.031); Immature Granulocyte Percent A 1.1 % (0-0.5); Lymphocytes Absolute Auto 4.66 K/mm3 (0.9-3.2); Lymphocytes Percent Auto 27.8 % (18.3-44.2); Mean Corpuscular HGB Conc 31.1 g/dl (32-36); Mean Corpuscular Hemoglobin 28.5 pg (26-34); Mean Corpuscular Volume 91.6 fl (80-100); Mean Platelet Volume 9.9 fl (7.4-10.4); Monocytes Percent Auto 5.7 % (2.6-8.5); Neutrophils Absolute Auto 10.8 K/mm3 (1.3-6.7); Neutrophils Percent Auto 64.4 % (45.5-73.1); Platelet Count Result 398 k/mm3 (150-375); Red Blood Count 5.02 M/mm3 (4.2-5.4); Red Cell Distribution Width 14.1 % (11.5-14.5); White Blood Count 16.8 K/mm3 (4.5-10.0)
[2022-09-05 20:38] LABS: Erythrocyte Sedimentation Rate 8 mm/hr (0-20)
[2022-09-05 20:48] LABS: Hepatitis B Surface Antigen Negative (Negative)
[2022-09-05 20:56] LABS: Hepatitis B Core IgM Result Negative (Negative)
[2022-09-05 21:05] LABS: Hepatitis C Virus Antibody Negative (Negative)
[2022-09-05 21:13] LABS: HAV RESULT Negative (Negative)
[2022-09-05 21:40] LABS: Immunoglobulin A 345 mg/dL (70-400); Immunoglobulin G 980 mg/dL (700-1600); Immunoglobulin M 73 mg/dL (40-230); Rheumatoid Factor < 12.0 IU/ML (<12)
[2022-09-05 22:04] LABS: HIV 1/2 Ab P24 Ag Result Negative (Negative)
[2022-09-09 19:38] LABS: Complement Total CH50 >60 U/mL (31-60)
[2022-09-09 20:08] LABS: Anti Streptolysin O Screen 81 IU/mL (<200)
[2022-09-11 01:16] LABS: Creatinine, Random Urine 100 mg/dL (20-275); Total Protein/Creatinine Ratio 70 mg/g creat (24-184)
[2022-09-12 03:54] LABS: Anti Cardio Antibody IgM <2.0 MPL-U/mL (<20.0); Anti Cardiolipin Antibody IgA <2.0 APL-U/mL (<20.0); Anti Cardiolipin Antibody IgG <2.0 GPL-U/mL (<20.0)
[2022-09-12 17:41] LABS: Cryoglobulin, QL Negative (Negative)
== END 2022-09-05 08:03 | disposition home or self-care (01) ==
LOC: ANHGOSHLAB 08:06
PROVIDERS: PCP Nurse Practitioner
DX: M31.0 Hypersensitivity angiitis (principal)
CPT/HCPCS: 36415; 80074; 82570; 82595; 82784; 84156; 84166; 85025; 85610; 85652; 85730; 86038; 86060; 86147; 86162; 86430; 86703; 87086; G0432

== ENCOUNTER → 2022-09-05 08:31 | Outpatient (CLI) | payer OTHER, SELFPAY ==
--- NOTE | ~2022-09-05 | XR_ITS ---
EXAMINATION: XR chest 2V 09/05/2022 08:45 INDICATION: Hypersensitivity angiitis PROCEDURE: 2 view chest COMPARISON: No prior studies for comparison. FINDINGS: The lungs are clear. The cardiomediastinal silhouette is within normal limits. There are no pleural effusions. There is no pneumothorax suspected. IMPRESSION: 1: NO ACUTE CARDIOPULMONARY DISEASE. Reviewed, dictated and finalized at location B.
== END ==
PROVIDERS: PCP Nurse Practitioner
DX: M31.0 Hypersensitivity angiitis (principal)
CPT/HCPCS: 71046

== ENCOUNTER 2024-06-21 09:49 | Emergency (ER) | payer OTHER, SELFPAY ==
--- NOTE | 2024-06-21 09:52 | ED.URI ---
HPI - URI/Sore Throat General Chief Complaint: Upper Respiratory Infection Stated Complaint: FEVER/SORE THROAT/BODY ACHES/CHILLS/HEADACHE Time Seen by Provider: 06/21/24 09:51 Source: patient Mode of arrival: ambulatory Limitations: no limitations History of Present Illness HPI Narrative: Patient is a 28-year-old female that presents with 12 hours of fever, sore throat, body aches, chills, headache. 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 Patient's fever was 101.5 this morning. Patient has taken 1 dose of Tylenol. Denies any cough, nausea, vomiting, diarrhea. Patient does have 4-month-old at home that she is . Related Data Home Medications ?Medication ?Instructions ?Recorded ?Confirmed ?Last Taken ?Type albuterol sulfate 90 mcg/actuation 2 inh inhalation PRN PRN Shortness 03/15/22 06/21/24 Unknown History aerosol inhaler Of Breath Or Wheezing Allergies Allergy/AdvReac Type Severity Reaction Status Date / Time erythromycin base Allergy Intermediate Rash Verified 06/21/24 10:11 sulfisoxazole Allergy Intermediate Rash Verified 06/21/24 10:11 codeine AdvReac Intermediate Nausea and Verified 06/21/24 10:11 Vomiting Review of Systems Review of Systems: All systems reviewed & are unremarkable except as noted in HPI and below Constitutional: Constitutional: Reports chills, Denies fatigue, Reports fever(s), Reports headache(s), Denies malaise and Denies weakness Eyes: Eyes: Denies blurry vision, Denies itchy eyes and Denies loss of vision ENT: Denies otalgia, Reports headache(s), Reports nasal congestion, Denies sinus pain and Reports sore throat Cardiovascular: Cardiovascular: Denies chest pain, Denies irregular heart rhythm and Denies dyspnea Respiratory: Respiratory: Denies cough and Denies dyspnea Gastrointestinal: Gastrointestinal: Denies abdominal pain, Denies diarrhea, Denies nausea and Denies vomiting Musculoskeletal: Musculoskeletal: Denies back pain, Reports myalgias and Denies arthralgias Integumentary/Breasts: Skin/Breast: Denies pruritus and Denies rash Neurologic: Denies headache(s), Denies loss of vision and Denies weakness Psychiatric: Psychiatric: Reports no additional psychiatric complaints Endocrine: Endocrine: Denies fatigue Allergic/Immunologic: Allergic/Immunologic: Denies itchy eyes PMFSH Past Medical History Medical History 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 Henoch Schonlein syndrome Anxiety Asthma Surgical History Surgical History History of appendectomy Social History Social History Smoking status: Never smoker Second hand tobacco smoke exposure: No Alcohol intake: current Drinks per week: 1 Substance use: never Substance use type: does not use Lack of Transportation: No Lack of Food: Never True Current Housing: I Do Not Have Housing Concerned About Future Housing: No Difficulty Paying Gas/Electric Bills: No Difficulty Paying for Meds: No Currently Unemployed: No Education: High School Diploma/GED Difficulty w/ Childcare or Family Care: No Living arrangements: with family Occupation/Education: occupation 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 There is no relevant family history pertinent to the presenting complaint. Exam Const: General: cooperative, healthy appearing, comfortable, no acute distress and well nourished Nutritional Appearance: well nourished Orientation/consciousness: patient oriented x3 Limitations: no limitations HENMT: Head: normal to inspection, normocephalic and atraumatic Ears: hearing grossly normal bilaterally, external ears normal, TM's normal bilaterally, EAC's normal and no periauricular adenopathy Face/Nose/Sinus: Normal external nose present, Abnormal mucous membranes and turbinates present erythematous bilateral and diffuse, normal facial exam, sinuses nontender and face symmetric Face and sinus: normal facial exam, sinuses nontender and face symmetric Mouth: Yes Normal oral and palatal mucosa present, Yes lip normal, Yes tongue normal, Yes Normal salivary glands and ducts present, Yes oropharynx normal and Yes moist mucous membranes Teeth and gingiva: dentition normal Throat: tonsils normal, uvula midline, posterior oropharynx abnormal erythema and postnasal drainage Eyes: General: appearance normal, both eyes and all related structures Alignment and Position: alignment normal and position normal Periorbital: periorbital findings normal Eyelids: eyelids normal Pupils: Equal, round and reactive pupils present Neck: Neck: normal visual inspection, full ROM, no lymphadenopathy and supple Chest: Chest palpation & inspection: normal inspection of the chest and normal palpation of entire chest wall Resp: Effort & Inspection: normal respiratory effort and able to speak in complete sentences Auscultation: clear to auscultation bilaterally, no crackles, no rales, no rhonchi and no wheezes Cardio: Rate: tachycardic Rhythm: regular rhythm Heart sounds: S1 normal heart sound present and S2 normal heart sound present GI: Inspection: normal to inspection Skin: General skin exam: normal color and no rashes or lesions noted Neuro: General: patient oriented x3 and moves all extremities Cranial nerves: Yes Equal, round and reactive pupils present Speech: normal speech Gait exam (Neuro): Normal gait present Extrem: General: normal to inspection, full ROM and no edema Psych: Appearance: grossly normal and well kempt Mental Status: mental status grossly normal Speech and movement: Normal speech and movement present Affect: normal affect Attitude: cooperative Thought process: Normal thought process present Course Course Emergency Course: Discharge instructions reviewed with patient, as well as provided in writing per nursing staff. The instructions also include specific and strict return/GO TO THE ER as well as f/u information. All questions have been answered, and the patient deny any further questions with discharge and discharge plan. Portions of this record may have been created with voice recognition software Level of Care: Express Care Visit Vital Signs Vital signs: Vital Signs Temperature 38.0 C H 06/21/24 10:28 Pulse Rate 129 H 06/21/24 10:28 Respiratory Rate 16 06/21/24 10:28 Blood Pressure 142/91 H 06/21/24 10:28 Pulse Oximetry 100 06/21/24 10:28 Temperature 38.0 C H 06/21/24 10:28 Pulse Rate 129 H 06/21/24 10:28 Respiratory Rate 16 06/21/24 10:28 Blood Pressure 142/91 H 06/21/24 10:28 Pulse Oximetry 100 06/21/24 10:28 Reviewed MDM - URI/Sore Throat MDM Narrative Medical decision making narrative: Pt well hydrated appearing, in no respiratory distress, hemodynamically stable. Recommend supportive care. The patient is stable at time of discharge the clinical impression was discussed and the patient was given the opportunity to ask questions, which were addressed as completely as possible given the information available at present. Anticipatory guidance and return to care precautions were discussed and the importance of primary care follow-up was stressed and encouraged. The patient voiced understanding of the plan, indications to return, and the need for follow-up. Differential diagnosis considered: Bronchitis, Adams virus, strep pharyngitis, allergic rhinitis, upper respiratory tract infection, sinusitis, rhinosinusitis, nasopharyngitis. viral pharyngitis, otitis media, otitis externa, otitis effusion, foreign body, cerumen impaction, viral syndrome, and influenza.? Exam findings show no acute concerns or changes; patient is non-toxic appearing and is in no distress.? Patient is appropriate for outpatient treatment and follow-up.? Medical Records Attestation: I reviewed the patient's medical records. Lab Data Attestation: I reviewed the patient's lab results. Labs: Lab Results 06/21/24 Range/Units 10:37 POC Influenza A Ag Negative (Negative) POC Influenza B Ag Negative (Negative) POC SARS CoV-2 Ag Negative (Negative) POC Grp A Strep Screen Negative (Negative) Discharge Plan Discharge Clinical Impression: Influenza-like illness Patient Disposition: Home, Self-Care Condition: Stable Instructions: Viral Syndrome (ED) Additional Instructions: Your rapid strep swab was negative today at [facility]. A throat culture will be sent to the laboratory for further testing. If the test is positive, you will receive a phone call within 48 hours and an appropriate antibiotic will be initiated at that time. Your Covid and flu are both negative Your symptoms are likely due to a viral illness, which is not treated with antibiotics. Viral symptoms can be present for up to a few weeks. -For pain/fever, you may take: Tylenol 650-1000mg by mouth every 4-6 hours. Do not exceed 4000mg in 24 hours. Advil (Ibuprofen) 600 mg by mouth every 6 hours. Do not exceed 2400mg in 24 hours. 8 AM: Tylenol 11 AM: Ibuprofen 2 PM: Tylenol 5 PM: Ibuprofen 8 PM: Tylenol 11 PM: Ibuprofen 2 AM: Tylenol 5 AM: Ibuprofen -Antihistamine medication such as Benadryl/Zyrtec at night and Claritin/Rosemarie during the day can help improve symptoms. -Use Flonase twice a day for 5 days then daily to help reduce the inflammation and dry up your sinuses. -You can also use Sudafed behind the pharmacy counter(12 or 24 hour). Be sure to drink plenty of water with these medications at least 8 ounces with every dose and it is important to drink 8 to 10 glasses of water per day. Water is a natural decongestant -Eat and drink things that are easy to swallow, like tea or soup, or popsicles. -Oral rinses such as: Salt water gargles and/or may use topical anesthetic (eg. Chloraseptic spray) or lozenges to relieve dryness or throat pain). -Frequent hand washing or hand circuit clerk is one of the best ways to prevent spread of infection. -Using a vaporizer or humidifier at night will also help thin secretions and help with coughing up phlegm. Call your Primary Care Doctor and make a follow-up appointment in 3 days. If your cough worsens, you develop a fever greater than 103, you develop shaking chills, a fast heartbeat, trouble breathing and/or feel you are are breathing much faster than usual, call your Primary Care Doctor or go to the ER. Your blood pressure was elevated above 120/80 today at Urgent Care. This puts you above the threshold for follow up visit with a primary care provider. High blood pressure does not usually cause any symptoms, however it may lead to kidney failure, stroke, heart disease just to name a few if untreated . Many people are anxious when seeing a provider or nurse. As a result, you are not diagnosed with hypertension at this time unless your blood pressure is persistently high at two office visits at least one week apart. Some things that can help lower blood pressure are lifestyle modifications, such as light exercise, decreased salt in diet, and weight loss. It is important to follow up with a PCP about this within 1 week. Patient Language: Czech Prescriptions: No Action albuterol sulfate 90 mcg/actuation HFA aerosol inhaler 2 inh INHALATION PRN PRN (Reason: Shortness Of Breath Or Wheezing) Follow-up/Referrals: Charis Cortez OPERATIONS CONTROLLER [Primary Care Provider] - 3 Days Stand Alone Forms: Work/School Release IP Time of Disposition: 10:52
[2024-06-21 10:28] VITALS: BP 142/91; PULSE 129; RESP 16; TEMP 38; O2SAT 100
[2024-06-21 10:39] LABS: EDCOVIDSCREEN Negative (Negative); EDINFLUASCREEN Negative (Negative); EDINFLUBSCREEN Negative (Negative); EDSTREPNEGPOS1 Negative (Negative)
== END 2024-06-21 10:54 | disposition home or self-care (01) ==
PROVIDERS: Emergency Provider Nurse Practitioner Family; PCP Nurse Practitioner
DX: J11.1 Influenza due to unidentified influenza virus with other respiratory manifestations (principal); Z20.822 Contact with and (suspected) exposure to COVID-19; J45.909 Unspecified asthma, uncomplicated; M31.0 Hypersensitivity angiitis
CPT/HCPCS: 87081; 87426; 87804; 87880; 99213; G0463